=== PATIENT | female | born 1995 | race American Indian/Alaskan Native ===

== ENCOUNTER 2021-07-31 06:49 | Emergency (ER) | payer SELFPAY ==
[2021-07-31] MEDS ORDERED: IBUPROFEN 800 MG TAB PO STA (09:39)
[2021-07-31] MEDS ORDERED: ACETAMINOPHEN 500 MG TAB PO STA (09:39)
--- NOTE | 2021-07-31 09:42 | Emergency Department Report ---
ED General Adult HPI - General Chief complaint: Sore Throat Stated complaint: SORE THROAT Time Seen by Provider: 07/31/21 09:27 Source: patient Mode of arrival: Ambulatory Limitations: No Limitations - History of Present Illness Initial comments: 26-year-old -[place] female patient presents with complaints of sore throat starting yesterday. She denies any past medical history. She rates her current pain as a 9/10 in severity. Patient states ibuprofen somewhat helps with the pain. She denies any cough, chest pain, shortness of breath, rashes, loss of taste or smell, or recent known sick contacts. Pain worsens with swallowing per patient. - Related Data Previous Rx's Medication Instructions Recorded Last Taken Type Amoxicillin [Trimox CAP] 500 mg PO BID 10 Days #20 capsule 07/31/21 Unknown Rx Ibuprofen [Motrin 800 MG tab] 800 mg PO Q8HR PRN #20 tablet 07/31/21 Unknown Rx Allergies Allergy/AdvReac Type Severity Reaction Status Date / Time latex Allergy Unknown Verified 07/31/21 06:52 peanut Allergy Unknown Verified 07/31/21 06:52 ED Review of Systems ROS: Stated complaint: SORE THROAT Other details as noted in HPI Constitutional: denies: chills, fever, malaise ENT: throat pain Respiratory: denies: cough Gastrointestinal: denies: nausea, vomiting Skin: denies: rash Hematological/Lymphatic: swollen glands ED Past Medical Hx - Past Medical History Previous Medical History?: No - Surgical History Past Surgical History?: No - Medications Home Medications: Home Medications Medication Instructions Recorded Confirmed Last Taken Type Amoxicillin [Trimox CAP] 500 mg PO BID 10 Days #20 capsule 07/31/21 Unknown Rx Ibuprofen [Motrin 800 MG tab] 800 mg PO Q8HR PRN #20 tablet 07/31/21 Unknown Rx ED Physical Exam - General Limitations: No Limitations General appearance: alert, in no apparent distress - Head Head exam: Present: atraumatic, normocephalic - Eye Eye exam: Present: normal appearance. Absent: scleral icterus - Expanded ENT Exam Expanded Mouth exam: Absent: drooling, trismus, muffled voice Throat exam: Positive: tonsillar erythema, tonsillomegaly, other (Uvula is midline). Negative: tonsillar exudate, R peritonsillar mass, L peritonsillar mass - Neck Neck exam: Present: full ROM, lymphadenopathy - Respiratory Respiratory exam: Absent: respiratory distress - Cardiovascular Cardiovascular Exam: Present: regular rate - Neurological Exam Neurological exam: Present: alert, oriented X3 - Psychiatric Psychiatric exam: Present: normal affect, normal mood - Skin Skin exam: Present: warm, dry, intact, normal color. Absent: rash ED Course Vital Signs 07/31/21 06:51 Temperature 100.0 F H Pulse Rate 93 H Respiratory 18 Rate Blood Pressure 118/90 O2 Sat by Pulse 100 Oximetry ED Medical Decision Making - Medical Decision Making 26-year-old -[place] female patient presents with complaints of sore throat starting yesterday. She denies any past medical history. She rates her current pain as a 9/10 in severity. Patient states ibuprofen somewhat helps with the pain. She denies any cough, chest pain, shortness of breath, rashes, loss of taste or smell, or recent known sick contacts. Pain worsens with swallowing per patient. Rapid strep is negative, however given physical exam findings along with fever and cervical lymphadenopathy, will treat empirically for a acute bacterial pharyngitis with Amoxil. Recommend patient follows up with PCP in 3 to 5 days. She is otherwise well-appearing, her vitals are within normal limits, she is stable for discharge home. Strict return precautions were discussed in detail with patient verbalizes understanding Critical care attestation.: If time is entered above; I have spent that time in minutes in the direct care of this critically ill patient, excluding procedure time. ED Disposition Clinical Impression: Acute pharyngitis Disposition: HOME / SELF CARE / HOMELESS Is pt being admited?: No Condition: Stable Instructions: Strep Throat, Adult Additional Instructions: Please also get COVID-19 testing within the next 24 to 48-hour Prescriptions: Ibuprofen [Motrin 800 MG tab] 800 mg PO Q8HR PRN #20 tablet PRN Reason: pain/fever Amoxicillin [Trimox CAP] 500 mg PO BID 10 Days #20 capsule Referrals: PRIMARY CARE,MD [Primary Care Provider] - 3-5 Days
[2021-07-31 12:12] VITALS: BP 113/71
== END 2021-07-31 12:11 | disposition home or self-care (01) ==
LOC: ED 06:49
DX: J02.9 Acute pharyngitis, unspecified (principal); Z91.010 Allergy to peanuts; Z91.040 Latex allergy status; Z79.899 Other long term (current) drug therapy
CPT/HCPCS: 87116; 87430; 99283